=== PATIENT | female | born 1980 | race Hispanic/Latino ===

== ENCOUNTER 2021-10-13 19:27 | Emergency (ER) | payer MEDICARE ==
[2021-10-13] MEDS ORDERED: cloNIDine 0.2 MG TAB PO STA (20:40)
--- NOTE | 2021-10-13 21:46 | Cat Scan Report ---
CT HEAD WITHOUT CONTRAST INDICATION / CLINICAL INFORMATION: Headache with severe HTN. TECHNIQUE: All CT scans at this location are performed using CT dose reduction for ALARA by means of automated exposure control. COMPARISON: None available. FINDINGS: There is mild motion artifact. HEMORRHAGE: None. EXTRA-AXIAL SPACES: Normal in size and morphology for the patient's age. VENTRICULAR SYSTEM: Normal in size and morphology for the patient's age. CEREBRAL PARENCHYMA: There is patchy symmetric low density in the periventricular white matter bilate rally. There is also mild decreased density in the centrum semiovale, especially in both posterior pa rietal regions. There is mild patchy symmetric decreased density involving the insular cortex/externa l capsule bilaterally. No evidence of acute major vessel occlusion. MIDLINE SHIFT / HERNIATION: None. CEREBELLUM / BRAINSTEM: No significant abnormality. ORBITS: Normal as visualized. SOFT TISSUES: No significant abnormality. SKULL: No significant abnormality. PARANASAL SINUSES / MASTOID AIR CELLS: Normal as visualized. ADDITIONAL FINDINGS: None. IMPRESSION: Findings suggestive of posterior reversible encephalopathy syndrome. A component of chron ic hypertensive microangiopathy may also be present. MRI may be helpful in further evaluation. Signer Name: Jaxon Galvez MD Signed: 10/13/2021 9:42 PM Workstation Name: [id number]
[2021-10-13 21:58] LABS: Alanine Aminotransferase 12 units/L (7-56); Albumin 4.9 g/dL (3.9-5); BUN/Creatinine Ratio 9; Blood Urea Nitrogen 8 mg/dL (7-17); Hemolysis Index 11
[2021-10-13] MEDS ORDERED: cloNIDine 0.1 MG TAB PO ONE (22:49)
[2021-10-14] MEDS ORDERED: hydrALAZINE 20 MG/1 ML INJ IV ONE (00:11)
--- NOTE | 2021-10-14 02:24 | Emergency Department Report ---
ED Headache HPI - General Chief Complaint: High BP Stated Complaint: HOT FLASHES/PAIN Time Seen by Provider: 10/13/21 20:38 - History of Present Illness Initial Comments: As well as 41-year-old female with a known history of hypertension of the last 14 years but noncompliant with her doctors visits and general healthcare [facility] emergency department today complaining of a dull throbbing headache to the occipital frontal region radiating across the head associated with occasional presyncope. Reports no hemoptysis no hematemesis hematochezia, no fever, chills, sweats. No chest pain palpitations, no nausea, no vomiting Head Injury Location: frontal, occipital Associated Symptoms: denies symptoms. denies: facial pain, fever/chills, nausea/vomiting, nasal congestion, nasal drainage, sinus infection, stiff neck, vision changes Allergies/Adverse Reactions: Allergies Penicillins Allergy (Verified 10/13/21 20:33) Unknown Home Medications: Ambulatory Orders Amlodipine Besylate [Norvasc] 10 mg PO DAILY #20 10/14/21 ED Review of Systems ROS: Stated complaint: HOT FLASHES/PAIN Other details as noted in HPI Comment: All other systems reviewed and negative ED Past Medical Hx - Medications Home Medications: Home Medications Medication Instructions Recorded Confirmed Last Taken Type Amlodipine Besylate [Norvasc] 10 mg PO DAILY #20 10/14/21 Unknown Rx ED Physical Exam - General Limitations: No Limitations General appearance: alert, in no apparent distress - Head Head exam: Present: atraumatic, normocephalic - Eye Eye exam: Present: normal appearance, PERRL, EOMI, nystagmus Pupils: Present: other (Negative funduscopic examination) - ENT ENT exam: Present: normal exam, normal orophraynx, mucous membranes moist - Neck Neck exam: Present: normal inspection, full ROM - Respiratory Respiratory exam: Present: normal lung sounds bilaterally. Absent: respiratory distress, wheezes, rales, rhonchi, chest wall tenderness, accessory muscle use - Cardiovascular Cardiovascular Exam: Present: regular rate, normal rhythm. Absent: systolic murmur, diastolic murmur, rubs, gallop - GI/Abdominal GI/Abdominal exam: Present: soft, normal bowel sounds - Extremities Exam Extremities exam: Present: normal inspection - Back Exam Back exam: Present: normal inspection - Neurological Exam Neurological exam: Present: alert, oriented X3 - Psychiatric Psychiatric exam: Present: normal affect, normal mood - Skin Skin exam: Present: warm, dry, intact, normal color. Absent: rash ED Course Vital Signs 10/13/21 10/13/21 10/13/21 20:12 20:34 20:45 Temperature 98.3 F Pulse Rate 90 Respiratory 20 Rate Blood Pressure 242/139 225/153 Blood Pressure [Left] O2 Sat by Pulse 100 93 99 Oximetry 10/13/21 10/13/21 10/13/21 20:51 20:53 21:00 Temperature Pulse Rate 91 H 91 H Respiratory 14 Rate Blood Pressure 227/140 225/153 Blood Pressure 227/140 [Left] O2 Sat by Pulse 98 100 Oximetry 10/13/21 10/13/21 10/13/21 21:16 21:31 21:45 Temperature Pulse Rate Respiratory Rate Blood Pressure 227/140 Blood Pressure [Left] O2 Sat by Pulse 100 98 98 Oximetry 10/13/21 10/13/21 10/13/21 22:01 22:04 22:15 Temperature Pulse Rate 71 Respiratory 14 Rate Blood Pressure 225/153 227/140 Blood Pressure 206/122 [Left] O2 Sat by Pulse 97 97 98 Oximetry 10/13/21 10/13/21 10/13/21 22:31 22:45 22:54 Temperature Pulse Rate 69 Respiratory Rate Blood Pressure 195/118 195/118 195/118 Blood Pressure [Left] O2 Sat by Pulse 98 95 Oximetry 10/13/21 10/13/21 10/13/21 23:01 23:15 23:31 Temperature Pulse Rate Respiratory Rate Blood Pressure 203/104 203/104 215/118 Blood Pressure [Left] O2 Sat by Pulse 99 96 99 Oximetry 10/13/21 10/14/21 10/14/21 23:45 00:01 00:15 Temperature Pulse Rate Respiratory Rate Blood Pressure 215/118 211/155 211/155 Blood Pressure [Left] O2 Sat by Pulse 99 97 97 Oximetry 10/14/21 10/14/21 10/14/21 00:30 00:38 00:45 Temperature Pulse Rate 77 Respiratory Rate Blood Pressure 211/155 208/125 208/125 Blood Pressure [Left] O2 Sat by Pulse 99 99 Oximetry 10/14/21 10/14/21 10/14/21 01:01 01:15 01:31 Temperature Pulse Rate Respiratory Rate Blood Pressure 160/78 208/125 143/88 Blood Pressure [Left] O2 Sat by Pulse 98 99 100 Oximetry ED Medical Decision Making - Lab Data Result diagrams: 10/13/21 21:10 - Radiology Data Radiology results: report reviewed [facility] [address] [place] [address] Cat Scan Report Signed Patient: LAWRENCE HERZOG MR#: [id number] 61 : 1980 Acct:[id number] Age/Sex: 41 / F ADM Date: 10/13/21 Loc: ED Attending Dr: Ordering Physician: GABBIE PARKER Date of Service: 10/13/21 Procedure(s): CT head/brain wo con Accession Number(s): [id number] cc: GABBIE PARKER CT HEAD WITHOUT CONTRAST INDICATION / CLINICAL INFORMATION: Headache with severe HTN. TECHNIQUE: All CT scans at this location are performed using CT dose reduction for ALARA by means of automated exposure control. COMPARISON: None available. FINDINGS: There is mild motion artifact. HEMORRHAGE: None. EXTRA-AXIAL SPACES: Normal in size and morphology for the patient's age. VENTRICULAR SYSTEM: Normal in size and morphology for the patient's age. CEREBRAL PARENCHYMA: There is patchy symmetric low density in the periventricular white matter bilaterally. There is also mild decreased density in the centrum semiovale, especially in both posterior parietal regions. There is mild patchy symmetric decreased density involving the insular cortex/external capsule bilaterally. No evidence of acute major vessel occlusion. MIDLINE SHIFT / HERNIATION: None. CEREBELLUM / BRAINSTEM: No significant abnormality. ORBITS: Normal as visualized. SOFT TISSUES: No significant abnormality. SKULL: No significant abnormality. PARANASAL SINUSES / MASTOID AIR CELLS: Normal as visualized. ADDITIONAL FINDINGS: None. IMPRESSION: Findings suggestive of posterior reversible encephalopathy syndrome. A component of chronic hypertensive microangiopathy may also be present. MRI may be helpful in further evaluation. Signer Name: Jaxon Galvez MD Signed: 10/13/2021 9:42 PM Workstation Name: [id number] Transcribed By: RT Dictated By: Jaxon Galvez MD Electronically Authenticated By: Jaxon Galvez MD Signed Date/Time: 10/13/212141 DD/ 30 TD/TT: - Medical Decision Making This patient presents with a headache most consistent with hypertensive headache. Differential diagnosis includes migraine versus tension type headache. No headache red flags. Neurologic exam without evidence of meningismus, focal neurologic findings.Based on the patient's history and physical there is very low clinical suspicion for significant intracranial pathology. The headache was NOT sudden onset, NOT maximal at onset, there are NO neurologic findings, the patient does NOT have a fever, the patient does NOT have any jaw claudication, the patient does NOT endorse a clotting disorder, patient DENIES any trauma or eye pain and the headache is NOT associated with dizziness or ataxia. Presentation not consistent with acute intracranial bleed to include SAH (lack of risk factors, headache history). Presentation not consistent with acute [employer] infection to include meningitis or brain abscess, Temporal arteritis unlikely, as is acute angle closure glaucoma given history and physical findings. Presentation not consistent with other acute, emergent causes of headache at this time. Plan to treat symptomatically with pain medication. No indication for imaging/LP at this time. Plan: pain medication, CT brain negative for any acute pathology, serial reassessment Blood pressure significant elevated 220s over 120s with associated dull throbbing headache. She started with clonidine 0.2 mg and blood pressure still showed a steady improvement clonidine was administered again in the form of 1 ischemia 0.1 mg. Blood pressure continues to maintain at around 200 IV was placed and hydralazine was administered blood pressure show significant response in the 160s over 100 Critical care attestation.: If time is entered above; I have spent that time in minutes in the direct care of this critically ill patient, excluding procedure time. ED Disposition Clinical Impression: HTN (hypertension), Headache Disposition: 01 HOME / SELF CARE / HOMELESS Is pt being admited?: No Does the pt Need Aspirin: No Condition: Stable Instructions: Hypertension (ED), Hypertension, Adult, [id number], Managing Your Hypertension Additional Instructions: Please sure to follow-up with him internal medicine or neurology to further evaluate your posterior reversible encephalopathy syndrome Prescriptions: Amlodipine Besylate [Norvasc] 10 mg PO DAILY #20 Referrals: SYLVIA LEE MD [Primary Care Provider] - 3-5 Days BRENDA WEEMS MD [Staff Physician] - 3-5 Days [facility] [Provider Group] - 3-5 Days
[2021-10-14 02:48] VITALS: BP 158/100
--- NOTE | 2021-10-14 10:43 | Electrocardiograph Report ---
[facility] Test Date: 2021-10-13 Test Time: 20:22:47 Pat Name: LAWRENCE HERZOG Department: Room: Gender: F [employer] Machine Operator: NURSE : 1980 Requested By: MIGUELITO DALAL Order Number: [id number] Reading MD: Silverio Davis Measurements Intervals [place] Rate: 95 P: 49 RI: 176 QRS: 33 QRSD: 86 T: 32 QT: 422 QTc: 531 Interpretive Statements Sinus rhythm nonspecific st-t No previous ECG available for comparison Electronically Signed On 10-14-2021 10:43:23 EDT by Silverio Davis
== END 2021-10-14 02:53 | disposition home or self-care (01) ==
LOC: ED 19:27
DX: I10 Essential (primary) hypertension (principal); R51.0 Headache with orthostatic component, not elsewhere classified; Z88.0 Allergy status to penicillin
CPT/HCPCS: 36415; 70450; 80053; 93005; 96374; 99284; J0360